=== PATIENT | male | born 1965 | race Two or more races ===

== ENCOUNTER 2018-10-02 21:25 | Inpatient (IN) | payer MEDICAID, OTHER ==
[~2018-10-02] VITALS: Ht 177.8 cm; Wt 88.1 kg
[2018-10-02 22:52] LABS: Albumin 3.3 g/dL (3.4-5.0); Basophils # (auto) 0 uL; Calcium 7.9 mg/dL (8.5-10.1); Eosinophils # (auto) 0.4 uL; Lymphocytes # (auto) 2.5 uL; Monocytes # (auto) 0.5 uL; Potassium 4.1 mmol/L (3.5-5.1)
[2018-10-02 22:53] LABS: Basophils % (auto) 0.5 % (0.0-2.0); Hematocrit 37.8 % (41.0-53.0); Lymphocytes % (auto) 35.5 % (10.0-50.0); Mean Corpuscular Hemoglobin 26.5 pg (28.0-32.0); Mean Corpuscular Hgb Conc. 31.7 g/dL (32.0-36.0); Mean Corpuscular Volume 83.8 fL (80.0-100.0); Monocytes % (auto) 7.7 % (0.0-12.0); Neutrophils # (auto) 3.5 uL; Neutrophils % (auto) 50.3 % (37.0-80.0); Platelet Count (auto) 232 10^3/uL (140-450); Red Blood Cells 4.51 10^6/uL (4.5-5.90); Red Cell Distribution Width 16.2 % (11.8-14.3)
[2018-10-02 22:59] LABS: BUN/Creatinine Ratio 15.9; Bilirubin, Total 0.3 mg/dL (0.2-1.0); Total Protein 6.7 g/dL (6.4-8.2)
[2018-10-03] MEDS ORDERED: VANCOMYCIN 1GM/250ML 250 ML IV ONE (03:45)
[2018-10-03] MEDS ORDERED: fentaNYL CITRATE 100 MCG/2 ML VL IV ONE (03:45)
[2018-10-03 04:30] LABS: Urine WBC None Seen /hpf (0 - 3)
[2018-10-03 05:12] LABS: Urine Bacteria NONE SEEN /hpf (None Seen); Urine Blood Negative /uL (Negative); Urine Specific Gravity 1.032 (1.001-1.035)
[2018-10-03] MEDS ORDERED: ACETAMINOPHEN 325 MG TAB PO PRN (05:45)
[2018-10-03] MEDS ORDERED: DEXTROSE (50%) 50ML SYRG IV PRN (05:45)
[2018-10-03] MEDS ORDERED: ONDANSETRON HCL 4 MG/2 ML VIAL IV PRN (05:45)
[2018-10-03] MEDS ORDERED: HYDROcodone-ACET 5/325MG TAB PO PRN (05:45)
[2018-10-03] MEDS ORDERED: TEMAZEPAM 15 MG CAP PO PRN (05:45)
[2018-10-03] MEDS: InsuLIN REG 1unit/0.01ml Soln (100units/ml) SC SCH ×2 (06:00→11:39)
[2018-10-03] MEDS: CLINDAMYCIN 600MG IV 50 ML IV SCH ×3 (06:10→22:16)
[2018-10-03] MEDS: ACCU-CHEK COMFORT CURVE STRIP VI SCH ×2 (06:18→11:39)
[2018-10-03 08:42] VITALS: BP 109/71
[2018-10-03] MEDS: FAMOTIDINE 20 MG TAB PO SCH ×2 (09:56→22:16)
[2018-10-03] MEDS: LISINOPRIL 10 MG TAB PO SCH (09:57)
[2018-10-03] MEDS: CARVEDILOL 3.125 MG TAB PO SCH (09:58)
[2018-10-03] MEDS: cefTRIAXone 1GM/50ML D5W 50 ML IV SCH (09:58)
[2018-10-03 10:37] VITALS: BP 109/71
[2018-10-03] MEDS ORDERED: ERTU5TAB PO (11:25)
[2018-10-03] MEDS ORDERED: FAMO-12 PO (11:25)
[2018-10-03] MEDS ORDERED: FURO40TA4 PO (11:25)
[2018-10-03] MEDS ORDERED: ASPI325T4 PO (11:25)
[2018-10-03] MEDS ORDERED: EXENINJ SC (11:25)
[2018-10-03] MEDS ORDERED: ATOR1TAB PO (11:25)
[2018-10-03] MEDS ORDERED: METF-370 PO (11:25)
[2018-10-03] MEDS ORDERED: CARV3.1240 PO (11:25)
[2018-10-03] MEDS ORDERED: EZET10TA6 PO (11:25)
[2018-10-03] MEDS ORDERED: LISI10TA6 PO (11:25)
[2018-10-03] MEDS ORDERED: INSLANTI SC (11:25)
[2018-10-03] MEDS ORDERED: ASPirin 81 mg TAB PO ONE (12:15)
[2018-10-03 12:24] VITALS: BP 106/61
[2018-10-03 17:00] VITALS: BP 117/66
[2018-10-03 22:00] VITALS: BP 100/61
[2018-10-03] MEDS ORDERED: ATORVASTATIN 20 MG TAB PO SCH (22:00)
[2018-10-04] MEDS: InsuLIN REG 1unit/0.01ml Soln (100units/ml) SC SCH ×4 (00:30→18:00)
[2018-10-04] MEDS: ACCU-CHEK COMFORT CURVE STRIP VI SCH ×4 (00:30→18:28)
[2018-10-04 05:00] VITALS: BP 108/71
[2018-10-04] MEDS: CLINDAMYCIN 600MG IV 50 ML IV SCH ×2 (05:41→15:19)
[2018-10-04 06:42] LABS: Basophils # (auto) 0 uL; Eosinophils # (auto) 0.4 uL; Lymphocytes # (auto) 2.1 uL; Monocytes # (auto) 0.5 uL; White Blood Cell 6.4 10^3/uL (4.4-10.8)
[2018-10-04 06:44] LABS: Basophils % (auto) 0.5 % (0.0-2.0); Eosinophils % (auto) 6.2 % (0.0-7.0); Hematocrit 38.1 % (41.0-53.0); Hemoglobin 12.3 g/dL (13.5-17.5); Lymphocytes % (auto) 33.2 % (10.0-50.0); Mean Corpuscular Hemoglobin 26.5 pg (28.0-32.0); Mean Corpuscular Hgb Conc. 32.2 g/dL (32.0-36.0); Mean Corpuscular Volume 82.5 fL (80.0-100.0); Monocytes % (auto) 7.7 % (0.0-12.0); Neutrophils # (auto) 3.3 uL; Neutrophils % (auto) 52.4 % (37.0-80.0); Nucleated Red Blood Cells % 0.1 %; Platelet Count (auto) 245 10^3/uL (140-450); Red Blood Cells 4.62 10^6/uL (4.5-5.90); Red Cell Distribution Width 16.5 % (11.8-14.3)
[2018-10-04 08:30] VITALS: BP 118/78
[2018-10-04] MEDS ORDERED: ASPirin 81 mg TAB PO SCH (10:00)
[2018-10-04] MEDS: cefTRIAXone 1GM/50ML D5W 50 ML IV SCH (10:17)
[2018-10-04] MEDS: CARVEDILOL 3.125 MG TAB PO SCH (10:17)
[2018-10-04] MEDS: LISINOPRIL 10 MG TAB PO SCH (10:18)
[2018-10-04] MEDS: FAMOTIDINE 20 MG TAB PO SCH (10:18)
[2018-10-04 12:00] VITALS: BP 119/62
[2018-10-04] MEDS ORDERED: CLIN1CAP4 PO (15:49)
[2018-10-04 17:00] VITALS: BP 106/65
[2018-10-04 17:46] VITALS: BP 106/65
== END 2018-10-04 19:00 | disposition home or self-care (01) | DRG 383 ==
LOC: ER 21:27 → OVERFLOW 10-03 05:39 → EAST 10-03 08:10
PROVIDERS: ADMIT Nurse Practitioner; ATTEND Nurse Practitioner
DX: L03.115 Cellulitis of right lower limb (principal); E44.1 Mild protein-calorie malnutrition; E11.9 Type 2 diabetes mellitus without complications; E78.5 Hyperlipidemia, unspecified; L02.619 Cutaneous abscess of unspecified foot; H54.61 Unqualified visual loss, right eye, normal vision left eye; I10 Essential (primary) hypertension; I25.10 Atherosclerotic heart disease of native coronary artery without angina pectoris; Z68.27 Body mass index [BMI] 27.0-27.9, adult
CPT/HCPCS: 36415; 80053; 81001; 82962; 83036; 83880; 84484; 85025; 87040; 93971; 96365; 96375; G0378; J0696; J1815; J3490

== ENCOUNTER → 2019-02-03 | Outpatient (CLI) | payer MEDICAID ==
[~2019-02-03] MED LIST: ALBUTEROL SULF 2.5 MG/0.5ML(0.5%) NEB SOLN ONE; ASPI325T4 PO; ATOR1TAB PO; CANA100T PO; CARV3.1240 PO; EZET10TA6 PO; FAMO-12 PO; INSLANTI SC; LISI10TA6 PO; METF-370 PO; SEMA2INJ SC
== END | disposition home or self-care (01) ==
LOC: RT 08:55
PROVIDERS: ATTEND Internal Medicine Pulmonary Disease
DX: R06.00 Dyspnea, unspecified (principal)
CPT/HCPCS: 94060; J7611

== ENCOUNTER 2020-09-13 16:01 | Emergency (ER) | payer OTHER, MEDICAID ==
[~2020-09-13] VITALS: Ht 177.8 cm; Wt 86.2 kg
[~2020-09-13 16:01] MED LIST changes: -ALBUTEROL SULF 2.5 MG/0.5ML(0.5%) NEB SOLN ONE; +EZET10TA22 PO; -EZET10TA6 PO; +LISI-648 PO; -LISI10TA6 PO
[2020-09-13 16:28] VITALS: BP 126/77
[2020-09-13 18:07] LABS: Basophils # (auto) 0 10 ^3/uL (0-0.2); Basophils % (auto) 0.6 % (0.0-2.0); Eosinophils # (auto) 0.3 10 ^3/uL (0-0.8); Eosinophils % (auto) 4.7 % (0.0-7.0); Hematocrit 44.9 % (41.0-53.0); Hemoglobin 14.6 g/dL (13.5-17.5); Lymphocytes # (auto) 2.8 10 ^3/uL (0.4-5.4); Lymphocytes % (auto) 40.3 % (10.0-50.0); Mean Corpuscular Hemoglobin 28.4 pg (28.0-32.0); Mean Corpuscular Hgb Conc. 32.5 g/dL (32.0-36.0); Mean Corpuscular Volume 87.5 fL (80.0-100.0); Monocytes # (auto) 0.6 10 ^3/uL (0-1.3); Monocytes % (auto) 8.9 % (0.0-12.0); Neutrophils # (auto) 3.2 10 ^3/uL (1.6-8.6); Neutrophils % (auto) 45.5 % (37.0-80.0); Nucleated Red Blood Cells % 0.2 %; Platelet Count (auto) 205 10^3/uL (140-450); Red Blood Cells 5.12 10^6/uL (4.5-5.90)
[2020-09-13 18:25] LABS: Albumin 3.9 g/dL (3.4-5.0); Calcium 9.2 mg/dL (8.5-10.1); Potassium 4.3 mmol/L (3.5-5.1)
[2020-09-13 18:28] LABS: BUN/Creatinine Ratio 15.6; Bilirubin, Total 0.6 mg/dL (0.2-1.0); Total Protein 7.4 g/dL (6.4-8.2)
== END 2020-09-13 21:05 | disposition left against medical advice (07) ==
LOC: ER 16:01
DX: R11.2 Nausea with vomiting, unspecified (principal); Z53.21 Procedure and treatment not carried out due to patient leaving prior to being seen by health care provider
CPT/HCPCS: 36415; 80053; 85025; 93005

== ENCOUNTER 2022-04-06 12:02 | Emergency (ER) | payer OTHER, MEDICAID ==
[~2022-04-06] VITALS: Ht 175.3 cm; Wt 87.5 kg
[~2022-04-06 12:02] MED LIST changes: +ATOR-47 PO; -ATOR1TAB PO; -LISI-648 PO; +LISI-716 PO
[2022-04-06 14:32] LABS: Basophils # (auto) 0.3 10 ^3/uL (0-0.2); Basophils % (auto) 1.8 % (0.0-2.0); Eosinophils # (auto) 0.2 10 ^3/uL (0-0.8); Eosinophils % (auto) 1.5 % (0.0-7.0); Hematocrit 46.5 % (41.0-53.0); Hemoglobin 15.6 g/dL (13.5-17.5); Lymphocytes # (auto) 1.8 10 ^3/uL (0.4-5.4); Lymphocytes % (auto) 12.4 % (10.0-50.0); Mean Corpuscular Hgb Conc. 33.6 g/dL (32.0-36.0); Mean Corpuscular Volume 89.4 fL (80.0-100.0); Monocytes # (auto) 0.5 10 ^3/uL (0-1.3); Monocytes % (auto) 3.6 % (0.0-12.0); Neutrophils # (auto) 11.9 10 ^3/uL (1.6-8.6); Neutrophils % (auto) 80.7 % (37.0-80.0); Red Blood Cells 5.21 10^6/uL (4.5-5.90); Red Cell Distribution Width 13.3 % (11.8-14.3); White Blood Cell 14.7 10^3/uL (4.4-10.8)
[2022-04-06] MEDS ORDERED: SODIUM CHLORIDE 0.9% 1,000 ML IV ONE (14:45)
[2022-04-06] MEDS ORDERED: ONDANSETRON HCL 4 MG/2 ML VIAL IV ONE (14:45)
[2022-04-06 14:51] LABS: BUN/Creatinine Ratio 9.3; Calcium 8.9 mg/dL (8.5-10.1); Magnesium 2.2 mg/dL (1.6-2.6); Potassium 4.2 mmol/L (3.5-5.1)
[2022-04-06 14:53] LABS: Bilirubin, Total 0.3 mg/dL (0.2-1.0); Total Protein 7.7 g/dL (6.4-8.2)
[2022-04-06] MEDS ORDERED: METO-281 PO (17:14)
[2022-04-06 18:06] VITALS: BP 130/87
== END 2022-04-06 18:10 | disposition home or self-care (01) ==
LOC: ER 12:02
DX: E11.649 Type 2 diabetes mellitus with hypoglycemia without coma (principal); R11.2 Nausea with vomiting, unspecified; R53.1 Weakness; H54.40 Blindness, one eye, unspecified eye; I11.0 Hypertensive heart disease with heart failure; I50.9 Heart failure, unspecified; I48.91 Unspecified atrial fibrillation; I25.2 Old myocardial infarction; E11.9 Type 2 diabetes mellitus without complications; E78.5 Hyperlipidemia, unspecified; Z95.1 Presence of aortocoronary bypass graft; Z79.82 Long term (current) use of aspirin; Z79.4 Long term (current) use of insulin; Z79.899 Other long term (current) drug therapy
CPT/HCPCS: 36415; 71046; 80053; 83735; 83880; 84443; 84484; 85025; 93005; 96361; 96374; 99285; J2405; J7030

== ENCOUNTER 2022-07-23 19:29 | Inpatient (IN) | payer OTHER, MEDICAID ==
[~2022-07-23] VITALS: Ht 172.7 cm; Wt 88.0 kg
[~2022-07-23 19:29] MED LIST changes: +METO-281 PO
[2022-07-23 20:27] LABS: Basophils # (auto) 0 10 ^3/uL (0-0.2); Basophils % (auto) 0.5 % (0.0-2.0); Eosinophils # (auto) 0.2 10 ^3/uL (0-0.8); Eosinophils % (auto) 2.7 % (0.0-7.0); Hematocrit 40.5 % (41.0-53.0); Lymphocytes # (auto) 2.4 10 ^3/uL (0.4-5.4); Lymphocytes % (auto) 32.1 % (10.0-50.0); Mean Corpuscular Hemoglobin 28.8 pg (28.0-32.0); Mean Corpuscular Hgb Conc. 32.1 g/dL (32.0-36.0); Mean Corpuscular Volume 89.6 fL (80.0-100.0); Monocytes # (auto) 0.5 10 ^3/uL (0-1.3); Monocytes % (auto) 6.5 % (0.0-12.0); Neutrophils # (auto) 4.4 10 ^3/uL (1.6-8.6); Neutrophils % (auto) 58.2 % (37.0-80.0); Nucleated Red Blood Cells % 0.1 %; Red Blood Cells 4.52 10^6/uL (4.5-5.90); Red Cell Distribution Width 13.2 % (11.8-14.3); White Blood Cell 7.5 10^3/uL (4.4-10.8)
[2022-07-23 20:47] LABS: Albumin 3.2 g/dL (3.4-5.0); Anion Gap 8 (5-15); Blood Urea Nitrogen 12 mg/dL (7-18); Calcium 8.3 mg/dL (8.5-10.1); Carbon Dioxide 24 mmol/L (21-32); Chloride 106 mmol/L (98-107); Glucose 167 mg/dL (74-106); Potassium 4.2 mmol/L (3.5-5.1); Sodium 138 mmol/L (136-145)
[2022-07-23 20:49] LABS: Alanine Aminotransferase 45 U/L (16-61); Aspartate Aminotransferase 28 U/L (15-37); BUN/Creatinine Ratio 14.1; GFR African American 119 mL/min; GFR Non-African American 98 mL/min
[2022-07-23 20:51] LABS: Alkaline Phosphatase 65 U/L (45-117); Bilirubin, Total 0.4 mg/dL (0.2-1.0); Total Protein 6.2 g/dL (6.4-8.2)
[2022-07-23] MEDS ORDERED: ASPirin 325 MG TAB PO ONE (21:00)
[2022-07-23] MEDS ORDERED: SODIUM CHLORIDE 0.9% 1,000 ML IV ONE (21:00)
[2022-07-23] MEDS ORDERED: NITROGLYCERIN 0.4 MG SL TAB SL ONE (21:00)
[2022-07-23] MEDS ORDERED: ONDANSETRON HCL 4 MG/2 ML VIAL IV PRN (21:15)
[2022-07-23] MEDS ORDERED: NITROGLYCERIN 0.4 MG SL TAB SL PRN (21:15)
[2022-07-23] MEDS ORDERED: ENOXAPARIN SOD 100 MG/1 ML SYRINGE SC ONE (21:15)
[2022-07-23] MEDS ORDERED: TEMAZEPAM 15 MG CAP PO PRN (21:15)
[2022-07-23] MEDS ORDERED: DEXTROSE (50%) 50ML SYRG IV PRN (21:15)
[2022-07-23] MEDS ORDERED: MORPHINE SULFATE INJ 2 MG/ml SYRG IV PRN (21:15)
[2022-07-23] MEDS: CARVEDILOL 3.125 MG TAB PO SCH (22:00)
[2022-07-23] MEDS: InsuLIN REG 1unit/0.01ml Soln (100units/ml) SC SCH (23:37)
[2022-07-23] MEDS: ACCU-CHEK COMFORT CURVE STRIP VI SCH (23:37)
[2022-07-23] MEDS: ATORVASTATIN 20 MG TAB PO SCH (23:44)
[2022-07-23] MEDS: DONEPEZIL HYDROCHLORIDE 5 MG TAB PO SCH (23:45)
[2022-07-24 04:58] LABS: Basophils # (auto) 0 10 ^3/uL (0-0.2); Basophils % (auto) 0.4 % (0.0-2.0); Eosinophils # (auto) 0.2 10 ^3/uL (0-0.8); Eosinophils % (auto) 3.2 % (0.0-7.0); Hematocrit 38.1 % (41.0-53.0); Hemoglobin 12.4 g/dL (13.5-17.5); Lymphocytes # (auto) 3.1 10 ^3/uL (0.4-5.4); Lymphocytes % (auto) 45.4 % (10.0-50.0); Mean Corpuscular Hemoglobin 28.9 pg (28.0-32.0); Mean Corpuscular Hgb Conc. 32.7 g/dL (32.0-36.0); Mean Corpuscular Volume 88.4 fL (80.0-100.0); Monocytes # (auto) 0.4 10 ^3/uL (0-1.3); Monocytes % (auto) 5.5 % (0.0-12.0); Neutrophils # (auto) 3.2 10 ^3/uL (1.6-8.6); Neutrophils % (auto) 45.5 % (37.0-80.0); Nucleated Red Blood Cells % 0.1 %; Red Cell Distribution Width 13.3 % (11.8-14.3); White Blood Cell 6.9 10^3/uL (4.4-10.8)
[2022-07-24 05:02] LABS: Albumin 2.9 g/dL (3.4-5.0); Calcium 7.7 mg/dL (8.5-10.1); Potassium 3.9 mmol/L (3.5-5.1)
[2022-07-24 05:05] LABS: BUN/Creatinine Ratio 13.6; Bilirubin, Total 0.4 mg/dL (0.2-1.0); Total Protein 5.3 g/dL (6.4-8.2)
[2022-07-24] MEDS: ACCU-CHEK COMFORT CURVE STRIP VI SCH ×4 (05:38→23:27)
[2022-07-24] MEDS: InsuLIN REG 1unit/0.01ml Soln (100units/ml) SC SCH ×4 (05:49→23:28)
[2022-07-24] MEDS: CARVEDILOL 3.125 MG TAB PO SCH ×2 (10:00→22:00)
[2022-07-24] MEDS ORDERED: PANTOPRAZOLE 40 MG TAB PO SCH (10:00)
[2022-07-24] MEDS ORDERED: ASPirin 81 mg TAB PO SCH (10:00)
[2022-07-24] MEDS: LISINOPRIL 10 MG TAB PO SCH (10:25)
[2022-07-24] MEDS ORDERED: ENOXAPARIN SOD 80 MG/0.8ML SYRINGE SC ONE (10:45)
[2022-07-24 15:21] LABS: Alcohol, Urine < 3.0 mg/dL (0-10); Amphetamine Screen, Urine NEGATIVE (NEGATIVE); Barbiturate Scree,Urine NEGATIVE (NEGATIVE); Benzodiazephine Screen, Urine NEGATIVE (NEGATIVE); Cannabinoid Screen, Urine NEGATIVE (NEGATIVE); Cocaine Screen, Urine NEGATIVE (NEGATIVE); Opiate Scree,Urine NEGATIVE (NEGATIVE); Phencyclidine Screen, Urine NEGATIVE (NEGATIVE)
[2022-07-24 15:22] LABS: Urine Bacteria NONE SEEN /hpf (None Seen); Urine Blood Negative /uL (Negative); Urine Mucus FEW (None Seen); Urine Specific Gravity 1.012 (1.001-1.035); Urine WBC <1 /hpf (0 - 3)
[2022-07-24 17:08] VITALS: BP 124/61
[2022-07-24 17:10] VITALS: BP 124/61
[2022-07-24] MEDS ORDERED: SUCRALFATE 1 GM/10 ML ORAL SUSP PO SCH (18:00)
[2022-07-24] MEDS: SUCRALFATE 1 GM/10 ML ORAL SUSP PO SCH ×2 (18:02→22:10)
[2022-07-24] MEDS ORDERED: FAMO20TA10 PO (19:43)
[2022-07-24] MEDS ORDERED: PROMETHAZINE-DM 5 ML ORAL SYRUP PO PRN (19:45)
[2022-07-24] MEDS ORDERED: ACETAMINOPHEN 325 MG TAB PO PRN (19:45)
[2022-07-24] MEDS ORDERED: CYAN1TAB14 PO (19:56)
[2022-07-24] MEDS ORDERED: DONE1TAB88 PO (20:00)
[2022-07-24] MEDS ORDERED: LISI-275 PO (20:00)
[2022-07-24] MEDS ORDERED: METF-372 PO (20:00)
[2022-07-24] MEDS ORDERED: EVOL140I2 SC (20:00)
[2022-07-24] MEDS ORDERED: DULA0.5I SC (20:00)
[2022-07-24] MEDS ORDERED: LATA0.0020 EACHEYE (20:00)
[2022-07-24 22:00] VITALS: BP 98/55
[2022-07-24] MEDS ORDERED: PANTOPRAZOLE 40 MG/10 ML VIAL INJ IV SCH (22:00)
[2022-07-24] MEDS: PANTOPRAZOLE 40 MG/10 ML VIAL INJ IV SCH (22:00)
[2022-07-24] MEDS: DONEPEZIL HYDROCHLORIDE 5 MG TAB PO SCH (22:09)
[2022-07-24] MEDS: ATORVASTATIN 20 MG TAB PO SCH (22:11)
[2022-07-24] MEDS: ENOXAPARIN SOD 80 MG/0.8ML SYRINGE SC SCH (22:12)
[2022-07-25 05:00] VITALS: BP 112/60
[2022-07-25] MEDS: ACCU-CHEK COMFORT CURVE STRIP VI SCH ×3 (06:12→18:00)
[2022-07-25] MEDS: InsuLIN REG 1unit/0.01ml Soln (100units/ml) SC SCH ×3 (06:19→18:46)
[2022-07-25] MEDS: SUCRALFATE 1 GM/10 ML ORAL SUSP PO SCH ×4 (06:22→21:38)
[2022-07-25] MEDS ORDERED: ADENOSINE 74 MG in GIVE UN-DILUTED 0 ML IV ONE (08:00)
[2022-07-25 08:58] VITALS: BP 111/63
[2022-07-25] MEDS: ENOXAPARIN SOD 80 MG/0.8ML SYRINGE SC SCH ×2 (10:00→21:43)
[2022-07-25] MEDS: PANTOPRAZOLE 40 MG/10 ML VIAL INJ IV SCH ×2 (10:10→21:41)
[2022-07-25] MEDS: LISINOPRIL 10 MG TAB PO SCH (10:11)
[2022-07-25] MEDS: CARVEDILOL 3.125 MG TAB PO SCH ×2 (10:11→21:40)
[2022-07-25] MEDS: ASPirin 81 mg TAB PO SCH (10:12)
[2022-07-25 12:14] VITALS: BP 115/61
[2022-07-25 16:52] VITALS: BP 109/67
[2022-07-25 21:33] VITALS: BP_SYST 110; BP_SYST 86; BP_DIAS 57; BP_DIAS 74
[2022-07-25] MEDS: DONEPEZIL HYDROCHLORIDE 5 MG TAB PO SCH (21:38)
[2022-07-25] MEDS: ATORVASTATIN 20 MG TAB PO SCH (21:38)
[2022-07-25 22:43] VITALS: BP 110/57
[2022-07-26] MEDS: ACCU-CHEK COMFORT CURVE STRIP VI SCH ×5 (01:02→23:23)
[2022-07-26 04:50] VITALS: BP 108/66
[2022-07-26] MEDS: InsuLIN REG 1unit/0.01ml Soln (100units/ml) SC SCH ×5 (05:19→23:25)
[2022-07-26 06:16] LABS: Partial Thromboplastin Time 27.6 sec (24.6-33.4)
[2022-07-26] MEDS: SUCRALFATE 1 GM/10 ML ORAL SUSP PO SCH ×4 (06:36→22:42)
[2022-07-26 08:39] VITALS: BP 109/70
[2022-07-26] MEDS: PANTOPRAZOLE 40 MG/10 ML VIAL INJ IV SCH ×2 (09:43→22:42)
[2022-07-26] MEDS: ASPirin 81 mg TAB PO SCH (09:43)
[2022-07-26] MEDS: ISOSORBIDE MONONITRATE ER 60 MG TAB PO SCH (09:44)
[2022-07-26] MEDS: LISINOPRIL 10 MG TAB PO SCH (09:44)
[2022-07-26] MEDS: CARVEDILOL 3.125 MG TAB PO SCH ×2 (09:45→22:00)
[2022-07-26] MEDS ORDERED: MIDAZOLAM HCL 5 MG/ML-1ML VIAL ONE (11:38)
[2022-07-26] MEDS ORDERED: LIDOCAINE VISCOUS 2% 15ML UD ONE (11:38)
[2022-07-26] MEDS ORDERED: diphenhdrAMINE HCL 50 MG/1 ML VL ONE (11:38)
[2022-07-26] MEDS ORDERED: fentaNYL CITRATE 100 MCG/2 ML VL ONE (11:39)
[2022-07-26 12:39] VITALS: BP 103/48
[2022-07-26] MEDS ORDERED: SODIUM CHLORIDE 0.9% 1,000 ML IV ONE (15:00)
[2022-07-26] MEDS ORDERED: PANT40TA2 PO (15:08)
[2022-07-26] MEDS ORDERED: SUCR1TAB22 PO (15:08)
[2022-07-26 16:42] VITALS: BP 95/61
[2022-07-26] MEDS ORDERED: SODIUM CHLORIDE 0.9% 500 ML IV ONE (18:15)
[2022-07-26] MEDS ORDERED: MIDODRINE HCL 10 MG TAB PO ONE (19:00)
[2022-07-26] MEDS: DONEPEZIL HYDROCHLORIDE 5 MG TAB PO SCH (22:42)
[2022-07-26] MEDS: ATORVASTATIN 20 MG TAB PO SCH (22:42)
[2022-07-26 22:51] VITALS: BP 102/62
[2022-07-27] VITALS (8 sets, daily range): BP systolic 91–123; BP diastolic 51–69
[2022-07-27] MEDS: ACCU-CHEK COMFORT CURVE STRIP VI SCH (05:30)
[2022-07-27] MEDS: SUCRALFATE 1 GM/10 ML ORAL SUSP PO SCH ×2 (05:30→11:30)
[2022-07-27] MEDS: InsuLIN REG 1unit/0.01ml Soln (100units/ml) SC SCH (05:40)
[2022-07-27] MEDS: ASPirin 81 mg TAB PO SCH (07:32)
[2022-07-27] MEDS: PANTOPRAZOLE 40 MG/10 ML VIAL INJ IV SCH (09:49)
[2022-07-27] MEDS: LISINOPRIL 10 MG TAB PO SCH (09:50)
[2022-07-27] MEDS: CARVEDILOL 3.125 MG TAB PO SCH (09:50)
[2022-07-27] MEDS: ISOSORBIDE MONONITRATE ER 60 MG TAB PO SCH (10:00)
[2022-07-27 10:25] LABS: Basophils # (auto) 0.1 10 ^3/uL (0-0.2); Eosinophils # (auto) 0.2 10 ^3/uL (0-0.8); Eosinophils % (auto) 2.7 % (0.0-7.0); Hematocrit 41.7 % (41.0-53.0); Hemoglobin 14.1 g/dL (13.5-17.5); Lymphocytes # (auto) 2.1 10 ^3/uL (0.4-5.4); Lymphocytes % (auto) 33.7 % (10.0-50.0); Mean Corpuscular Hgb Conc. 33.7 g/dL (32.0-36.0); Mean Corpuscular Volume 88.9 fL (80.0-100.0); Monocytes # (auto) 0.4 10 ^3/uL (0-1.3); Monocytes % (auto) 6.3 % (0.0-12.0); Neutrophils # (auto) 3.5 10 ^3/uL (1.6-8.6); Neutrophils % (auto) 56.3 % (37.0-80.0); Nucleated Red Blood Cells % 0.1 %; Red Blood Cells 4.69 10^6/uL (4.5-5.90); White Blood Cell 6.1 10^3/uL (4.4-10.8)
[2022-07-27 10:42] LABS: Albumin 3.3 g/dL (3.4-5.0); Calcium 8.6 mg/dL (8.5-10.1); Potassium 4.2 mmol/L (3.5-5.1)
[2022-07-27 10:47] LABS: BUN/Creatinine Ratio 11.3; Bilirubin, Total 0.4 mg/dL (0.2-1.0); Total Protein 6.1 g/dL (6.4-8.2)
== END 2022-07-27 11:30 | disposition home or self-care (01) | DRG 384 ==
LOC: ER 19:29 → TELE 21:18 → TELE-EAST 07-24 17:05
PROVIDERS: ADMIT Nurse Practitioner; ATTEND Internal Medicine
PROC: 0DB68ZX Excision of Stomach, Via Natural or Artificial Opening Endoscopic, Diagnostic (ICD-10-PCS; 2022-07-26)
PROC: 0DB38ZX Excision of Lower Esophagus, Via Natural or Artificial Opening Endoscopic, Diagnostic (ICD-10-PCS; 2022-07-26)
PROC: 0DB98ZX Excision of Duodenum, Via Natural or Artificial Opening Endoscopic, Diagnostic (ICD-10-PCS; principal; 2022-07-26 13:42)
DX: K25.9 Gastric ulcer, unspecified as acute or chronic, without hemorrhage or perforation (principal); K29.80 Duodenitis without bleeding; K29.70 Gastritis, unspecified, without bleeding; Z97.0 Presence of artificial eye; E11.9 Type 2 diabetes mellitus without complications; E78.5 Hyperlipidemia, unspecified; I11.0 Hypertensive heart disease with heart failure; I48.91 Unspecified atrial fibrillation; I50.9 Heart failure, unspecified; Z20.822 Contact with and (suspected) exposure to COVID-19; I95.9 Hypotension, unspecified; I25.10 Atherosclerotic heart disease of native coronary artery without angina pectoris; H54.62 Unqualified visual loss, left eye, normal vision right eye; K44.9 Diaphragmatic hernia without obstruction or gangrene; Z88.8 Allergy status to other drugs, medicaments and biological substances; Z79.4 Long term (current) use of insulin; I25.2 Old myocardial infarction; Z79.82 Long term (current) use of aspirin; Z79.899 Other long term (current) drug therapy; Z95.1 Presence of aortocoronary bypass graft; Z80.0 Family history of malignant neoplasm of digestive organs; Z82.49 Family history of ischemic heart disease and other diseases of the circulatory system; Z83.3 Family history of diabetes mellitus; Z87.11 Personal history of peptic ulcer disease; K21.00 Gastro-esophageal reflux disease with esophagitis, without bleeding
CPT/HCPCS: 36415; 43239; 71045; 78452; 80053; 80307; 81001; 82553; 82962; 83690; 83880; 84484; 85025; 85610; 85730; 86850; 86900; 86901; 93005; 93017; 93306; 96360; 96372; C9113; G0378; J0153; J1815; J2250

== ENCOUNTER 2023-01-29 09:08 | Emergency (ER) | payer OTHER, MEDICAID ==
[~2023-01-29] VITALS: Ht 172.7 cm; Wt 87.0 kg
[~2023-01-29 09:08] MED LIST changes: +CYAN1TAB14 PO; +DONE1TAB88 PO; +DULA0.5I SC; +EVOL140I2 SC; -FAMO-12 PO; +LATA0.0020 EACHEYE; +LISI-275 PO; -LISI-716 PO; +METF-372 PO; +PANT40TA2 PO; +SUCR1TAB22 PO
[2023-01-29 09:45] VITALS: BP 137/77
== END 2023-01-29 10:29 | disposition home or self-care (01) ==
LOC: ER 09:08
DX: M19.012 Primary osteoarthritis, left shoulder (principal); M77.8 Other enthesopathies, not elsewhere classified; I48.91 Unspecified atrial fibrillation; I11.0 Hypertensive heart disease with heart failure; E11.9 Type 2 diabetes mellitus without complications; I50.9 Heart failure, unspecified; Z88.8 Allergy status to other drugs, medicaments and biological substances; Z79.899 Other long term (current) drug therapy; Z79.84 Long term (current) use of oral hypoglycemic drugs; Z88.6 Allergy status to analgesic agent; Z98.890 Other specified postprocedural states; Z79.82 Long term (current) use of aspirin
CPT/HCPCS: 73030; 93005

== ENCOUNTER 2023-03-07 07:10 | Day surgery (SDC) | payer OTHER, MEDICAID ==
[~2023-03-07] VITALS: Ht 175.3 cm; Wt 88.0 kg
[~2023-03-07 07:10] MED LIST changes: +CLOP75TA70 PO; +EVOL140I SC; -EVOL140I2 SC; -EZET10TA22 PO; +FAMO-12 PO; -INSLANTI SC; +INSU1INJ19 SC; -METF-370 PO; -METO-281 PO; -PANT40TA2 PO; -SEMA2INJ SC
[2023-03-07] MEDS ORDERED: fentaNYL CITRATE 100 MCG/2 ML VL ONE (09:20)
[2023-03-07] MEDS ORDERED: LIDOCAINE 2%HCL (LOCAL ANESTH.) INJ 20ML MDV ONE (09:20)
[2023-03-07] MEDS ORDERED: IODIXANOL 320MG/ML 100ML BTL IV ONE ×2 (09:20→10:05)
[2023-03-07] MEDS ORDERED: MIDAZOLAM HCL 2MG/2ML 2ml VIAL (1mg/ml) ONE (09:20)
[2023-03-07] MEDS ORDERED: ANGIOMAX 250 MG VIAL IV ONE (09:22)
[2023-03-07] MEDS ORDERED: SODIUM CHL 0.9% 0 ML ONE (09:23)
[2023-03-07] MEDS ORDERED: VERAPAMIL 2.5MG/ML INJ 2ML VIAL IV ONE (09:24)
[2023-03-07] MEDS ORDERED: HEPARIN SODIUM (PORCINE) 5000 UNITS/ML 1ML VIAL ONE (09:24)
[2023-03-07] MEDS ORDERED: SUCR1TAB PO (11:10)
[2023-03-07] MEDS ORDERED: CYAN500T26 PO (11:10)
== END 2023-03-07 12:15 | disposition home or self-care (01) ==
LOC: CATH 07:10
PROVIDERS: ATTEND Internal Medicine Cardiovascular Disease
DX: I25.5 Ischemic cardiomyopathy (principal); I10 Essential (primary) hypertension; I25.2 Old myocardial infarction; E11.9 Type 2 diabetes mellitus without complications; Z80.0 Family history of malignant neoplasm of digestive organs; Z83.3 Family history of diabetes mellitus; Z98.61 Coronary angioplasty status; Z79.82 Long term (current) use of aspirin; Z79.4 Long term (current) use of insulin; Z88.8 Allergy status to other drugs, medicaments and biological substances; Z82.49 Family history of ischemic heart disease and other diseases of the circulatory system; Z79.899 Other long term (current) drug therapy
CPT/HCPCS: 76937; 93458; C1769; C1894; J1644; J2250; J3010; Q9967; 99152; 99153

== ENCOUNTER 2023-11-11 19:41 | Emergency (ER) | payer OTHER, MEDICAID ==
[~2023-11-11] VITALS: Ht 175.3 cm; Wt 77.2 kg
[2023-11-11 19:41] VITALS: BP 117/55; PULSE 74; RESP 20; O2SAT 97
[~2023-11-11 19:41] MED LIST changes: -CYAN1TAB14 PO; +CYAN500T26 PO; +SUCR1TAB PO; -SUCR1TAB22 PO
== END 2023-11-11 21:55 | disposition left against medical advice (07) ==
LOC: ER 19:41
DX: H57.89 Other specified disorders of eye and adnexa (principal); Z53.21 Procedure and treatment not carried out due to patient leaving prior to being seen by health care provider

== ENCOUNTER 2025-03-21 18:20 | Emergency (ER) | payer OTHER, MEDICAID ==
[~2025-03-21] VITALS: Ht 175.3 cm; Wt 83.7 kg
[~2025-03-21 18:20] MED LIST changes: -ASPI325T4 PO; +ASPI325T6 PO; -CYAN500T26 PO; +[UNRECOGNIZED DRUG - CODE] PO
--- NOTE | 2025-03-21 19:32 | DVH ---
CHEST RADIOGRAPH Indication: CP Technique: Single frontal view of the chest was obtained Comparison: CHEST PORTABLE on DOS: 07/23/22, CXRP on DOS: 07/23/22 FINDINGS: Lines and Tubes: None Lungs: No focal consolidation. Pleura: No effusion. No pneumothorax. Cardiomediastinal contours: Unremarkable. Midline sternotomy wires surgical clips are noted consiste nt with prior history of CABG. Bones: No acute osseous abnormality. IMPRESSION: No acute cardiopulmonary disease.
[2025-03-21 19:36] LABS: Basophils # (auto) 0 10 ^3/uL (0-0.2); Basophils % (auto) 0.3 % (0.0-2.0); Eosinophils # (auto) 0.2 10 ^3/uL (0-0.8); Eosinophils % (auto) 2.1 % (0.0-7.0); Hematocrit 46.1 % (41.0-53.0); Hemoglobin 15.4 g/dL (13.5-17.5); Lymphocytes # (auto) 2.4 10 ^3/uL (0.4-5.4); Lymphocytes % (auto) 32.6 % (10.0-50.0); Mean Corpuscular Hemoglobin 30.2 pg (28.0-32.0); Mean Corpuscular Hgb Conc. 33.5 g/dL (32.0-36.0); Mean Corpuscular Volume 90.4 fL (80.0-100.0); Monocytes # (auto) 0.5 10 ^3/uL (0-1.3); Neutrophils # (auto) 4.4 10 ^3/uL (1.6-8.6); Nucleated Red Blood Cells % 0.1 %; Platelet Count (auto) 192 10^3/uL (140-450); Red Cell Distribution Width 12.9 % (11.8-14.3); White Blood Cell 7.5 10^3/uL (4.4-10.8)
[2025-03-21 19:36] LABS: Urine Bacteria None Seen /hpf (None Seen)
[2025-03-21 19:55] LABS: Albumin 4.7 g/dL (3.2-4.8); Alkaline Phosphatase 74 U/L (46-116); Anion Gap 8 (5-15); Aspartate Aminotransferase 25 U/L (13-40); BUN/Creatinine Ratio 8.9 (10.0-20.0); Blood Urea Nitrogen 12 mg/dL (9-23); Calcium 10.3 mg/dL (8.7-10.4); Carbon Dioxide 28 mmol/L (20-31); Chloride 105 mmol/L (98-107); Potassium 4.1 mmol/L (3.5-5.1); Sodium 141 mmol/L (136-145); Total Protein 7.1 g/dL (5.7-8.2)
[2025-03-21 19:56] LABS: Bilirubin, Total 0.5 mg/dL (0.2-1.0)
[2025-03-21 19:57] LABS: Urine Blood Negative /uL (Negative); Urine Clarity Clear (Clear); Urine Color Light-Yellow (Yellow); Urine Protein, UAD Negative (Negative); Urine Specific Gravity 1.037 (1.001-1.035); Urine Squamous Epithelial Cell None Seen /hpf (<5); Urine Urobilinogen Normal (Negative); Urine WBC < 1 /HPF (0-3); Urine pH 5.5 (5.0-9.0)
[2025-03-21 19:58] LABS: Alanine Aminotransferase 49 U/L (7-40); Glucose 143 mg/dL (74-106)
--- NOTE | 2025-03-21 20:07 | ED.PDOC ---
HPI Comments 59 y/o M, with PMHx of A-Fib, CHF, DM, HLD, HTN, and [place] presents to the ED for CC of chest pain. Patient states, that he has been experiencing substernal chest pain that radiates from his midback onset, 1400 today (03/21/25). Patient reports, symptoms to have come on following working on furniture outside. Patient comments, on increased stressed d/t dog being bite by snake which could be a factor of symptoms. Patient expresses increased concern due to having SHx:CABG; complains of current 2/10 pain. Patient denies headache, shortness of breath, dizziness, or weakness. No other symptoms or modifying factors present at this time. Chief Complaint: Chest Pain Time Seen by MD: 19:30 Primary Care Provider: JESSICA BRAVO Reviewed Notes: Nurses Notes, Medications, Allergies Allergies: Coded Allergies: Ertugliflozin (Verified Allergy, Unknown, RASH, 03/05/23) Esomeprazole (Verified Allergy, Unknown, RASH, 03/05/23) Omeprazole (Verified Allergy, Unknown, RASH, 03/05/23) Pantoprazole (Verified Allergy, Unknown, RASH, 03/05/23) Home Meds Reported Medications Sucralfate (Sucralfate) 1 Gm Tab, 1 TAB PO QID for GASTRIC ULCER PREVENTION 03/07/23 Cyanocobalamin (B-12) 500 Mcg Tab, 1 TAB PO DAILY for SUPPLEMENT 03/07/23 Evolocumab (Repatha) 140 Mg/Ml Inj, 1 ML SC EVERY OTHER FRIDAY for HIGH CHOLESTEROL 03/05/23 Insulin Glargine (Basaglar Kwikpen) 100 Unit/Ml Inj, 15 UNIT SC BID PRN for Blood Sugar over 125 03/05/23 Clopidogrel Bisulfate (CLOPIDOGREL) 75 Mg Tab, 1 TAB PO DAILY for POST-CABG 03/05/23 Famotidine (Famotidine) 20 Mg Tab, 1 TAB PO BID for GERD 03/05/23 Dulaglutide (Trulicity) 1.5 Mg/0.5 Ml Inj, 1.5 ML SC QWEEKLY for DIABETES 07/24/22 Metformin Hydrochloride (Metformin Hcl) 1,000 Mg Tab, 1 TAB PO BID for DIABETES 07/24/22 Latanoprost (Xalatan) 0.005 % Gabriela, 1 DROP EACHEYE QPM for GLAUCOMA 07/24/22 Donepezil Hydrochloride (DONEPEZIL HCL) 10 Mg Tab, 1 TAB PO DAILY for HYPERTENSION 07/24/22 Lisinopril (Lisinopril) 5 Mg Tab, 2 TAB PO DAILY for HYPERTENSION 07/24/22 Canagliflozin (INVOKANA) 100 Mg Tab, 1 TAB PO DAILY for DIABETES 12/05/18 Carvedilol (Carvedilol) 3.125 Mg Tab, 1 TAB PO BID for HYPERTENSION 10/03/18 Aspirin (Aspirin) 325 Mg Tab, 1 TAB PO DAILY for CAD 10/03/18 Atorvastatin Calcium (ATORVASTATIN CALCIUM) 80 Mg Tab, 1 TAB PO QPM for HIGH CHOLESTEROL 10/03/18 Information Source: Patient Mode of Arrival: Ambulatory Severity: Moderate Timing: Hours Duration: Since onset Prehospital treatment: None Location: Substernal Radiation: Back Onset: With Light Exertion Cardiac Risk Factors: Hyperlipidemia, HTN, Diabetes PE Risk Factors: None History of: [place] Modifying Factors: Nothing Associated Signs and Symptoms: None Past Medical History PAST MEDICAL HISTORY: AFIB, CHF, DM, High Lipids, HTN, [place], PUD Surgical History: CABG, Hernia Repair Family History Family History: Reviewed,noncontributory to illness Social History Smoker: Non-Smoker Alcohol: Occasionally Drugs: Denies Drug Use Lives In: Home Constitutional: denies: chills, diaphoresis, fatigue, fever, malaise, sweats, weakness, others EENTM: denies: blurred vision, double vision, ear bleeding, ear discharge, ear drainage, ear pain, ear ringing, eye pain, eye redness, hearing loss, mouth pain, mouth swelling, nasal discharge, nose bleeding, nose congestion, nose pain, photophobia, tearing, throat pain, throat swelling, voice changes, others Respiratory: denies: cough, hemoptysis, orthopnea, SOB at rest, shortness of breath, SOB with excertion, stridor, wheezing, others Cardiovascular: reports: chest pain; denies: dizzy spells, diaphoresis, Dyspnea on exertion, edema, irregular heart beat, left arm pain, lightheadedness, palpitations, PND, syncope, others Gastrointestinal: denies: abdomen distended, abdominal pain, blood streaked bowels, constipated, diarrhea, dysphagia, difficulty swallowing, hematemesis, melena, nausea, poor appetite, poor fluid intake, rectal bleeding, rectal pain, vomiting, others Genitourinary: denies: burning, dysuria, flank pain, frequency, hematuria, incontinence, penile discharge, penile sore, pain, testicle pain, testicle swelling, urgency, others Neurological: denies: dizziness, fainting, headache, left sided numbness, left sided weakness, numbness, paresthesia, pre-existing deficit, right sided numbness, right sided weakness, seizure, speech problems, tingling, tremors, weakness, others Musculoskeletal: denies: back pain, gout, joint pain, joint swelling, muscle pain, muscle stiffness, neck pain, others Integumetry: denies: bruises, change in color, change in hair/nails, dryness, laceration, lesions, lumps, rash, wounds, others Allergic/Immunocompromised: denies: Difficulty Healing, Frequent Infections, Hives, Itching, others Hematologic/Lymphatic: denies: anemia, blood clots, easy bleeding, easy bruising, swollen glands, others Endocrine: denies: excessive hunger, excessive sweating, excessive thirst, excessive urination, flushing, intolerance to cold, intolerance to heat, unexplained weight gain, unexplained weight loss, others Psychiatric: denies: anxiety, bipolar disorder, depression, hopeless, panic disorder, schizophrenia, sleepless, suicidal, others All Other Systems: Reviewed and Negative Physical Exam General Appearance: No Apparent Distress, Normal HEENT: Normal ENT Inspection, Pharynx Normal, TMs Normal Neck: Full Range of Motion, Non-Tender, Normal, Normal Inspection Respiratory: Chest Non-Tender, Lungs Clear, No Accessory Muscle Use, No Respiratory Distress, Normal Breath Sounds Cardiovascular: No Edema, No Murmur, No Gallop, Normal Peripheral Pulses, Regular Rate/Rhythm, Other (Reproducible chest pain) Breast Exam: Deferred Gastrointestinal: No Organomegaly, Non Tender, No Pulsatile Mass, Normal Bowel Sounds, Soft Genitalia: Deferred Pelvic: Deferred Rectal: Deferred Extremities: No calf tenderness, Normal capillary refill, Normal inspection, Normal range of motion, Non-tender, No pedal edema Musculoskeletal : Apperance: Normal Neurologic: Alert, receiving team member II-XII nml as Tested, No Motor Deficits, Normal Affect, Normal Mood, No Sensory Deficits Cerebellar Function: Normal Reflexes: Normal Skin: Dry, Normal Color, Warm Lymphatic: No Adenopathy Was a procedure done? Was a procedure done?: No CP Differential Dx Differential Diagnosis: A-fib, [place] Differential Diagnosis: CHF, HTN Essential, HTN Accelerated X-Ray, Labs, Meds, VS Vital Signs Date Time Temp Pulse Resp B/P (MAP) Pulse Ox O2 Delivery O2 Flow Rate FiO2 03/21/25 18:38 86 03/21/25 18:30 98.2 54 18 127/69 (88) 98 98.2 Lab Test 03/21/25 20:02 03/21/25 19:02 03/21/25 18:47 Range/Units Troponin I High Sensitivity 20 23 </=54 ng/L White Blood Count 7.5 4.4-10.8 10^3/uL Red Blood Count 5.10 4.5-5.90 10^6/uL Hemoglobin 15.4 13.5-17.5 g/dL Hematocrit 46.1 41.0-53.0 % Mean Corpuscular Volume 90.4 80.0-100.0 fL Mean Corpuscular Hemoglobin 30.2 28.0-32.0 pg Mean Corpuscular Hemoglobin Concent 33.5 32.0-36.0 g/dL Red Cell Distribution Width 12.9 11.8-14.3 % Platelet Count 192 140-450 10^3/uL Mean Platelet Volume 7.5 6.9-10.8 fL Neutrophils (%) (Auto) 59.0 37.0-80.0 % Lymphocytes (%) (Auto) 32.6 10.0-50.0 % Monocytes (%) (Auto) 6.0 0.0-12.0 % Eosinophils (%) (Auto) 2.1 0.0-7.0 % Basophils (%) (Auto) 0.3 0.0-2.0 % Neutrophils # (Auto) 4.4 1.6-8.6 10 ^3/uL Lymphocytes # (Auto) 2.4 0.4-5.4 10 ^3/uL Monocytes # (Auto) 0.5 0-1.3 10 ^3/uL Eosinophils # (Auto) 0.2 0-0.8 10 ^3/uL Basophils # (Auto) 0 0-0.2 10 ^3/uL Nucleated Red Blood Cells 0.1 % Sodium Level 141 136-145 mmol/L Potassium Level 4.1 3.5-5.1 mmol/L Chloride Level 105 98-107 mmol/L Carbon Dioxide Level 28 20-31 mmol/L Anion Gap 8 5-15 Blood Urea Nitrogen 12 9-23 mg/dL Creatinine 1.35 H 0.700-1.30 mg/dL Glomerular Filtration Rate Calc 60 >90 mL/min BUN/Creatinine Ratio 8.9 L 10.0-20.0 Serum Glucose 143 H 74-106 mg/dL Calcium Level 10.3 8.7-10.4 mg/dL Total Bilirubin 0.5 0.2-1.0 mg/dL Aspartate Amino Transferase (AST) 25 13-40 U/L Alanine Aminotransferase (ALT) 49 H 7-40 U/L Alkaline Phosphatase 74 46-116 U/L B-Type Natriuretic Peptide 31.20 0-100 pg/mL Total Protein 7.1 5.7-8.2 g/dL Albumin 4.7 3.2-4.8 g/dL Urine Color Light-yellow Yellow Urine Clarity Clear Clear Urine pH 5.5 5.0-9.0 Urine Specific Mineral 1.037 H 1.001-1.035 Urine Protein Negative Negative Urine Ketones Negative Negative Urine Blood Negative Negative /uL Urine Nitrite Negative Negative Urine Bilirubin Negative Negative Urine Urobilinogen Normal Negative mg/dL Urine Leukocyte Esterase Negative Negative /uL Urine RBC 1 0 - 3 /hpf Urine Microscopic WBC < 1 0-3 /HPF Urine Squamous Epithelial Cells None seen <5 /hpf Urine Bacteria None seen None Seen /hpf Urine Glucose 4+ H Normal mg/dL [place] [id number] Ph: [phone] DIAGNOSTIC IMAGING Diagnostic Imaging Report : [id number] Signed PATIENT: NAYAN FELICIANO SROACCT: [id number] UNIT: [id number] : 1965 LOC: ER ROOM / BED: / AGE / SEX: 59 / M ADM STATUS: REG ER SERVICE [id number] ORDERING PHYSICIAN: DAGMAR NGUYEN PROCEDURE(s): CXR1 - CHEST XRAY 1 VIEW REASON: CP ORDER NUMBER(s): [id number], ACCESSION NUMBER(s): [id number] CHEST RADIOGRAPH Indication: CP Technique: Single frontal view of the chest was obtained Comparison: CHEST PORTABLE on DOS: 07/23/22, CXRP on DOS: 07/23/22 FINDINGS: Lines and Tubes: None Lungs: No focal consolidation. Pleura: No effusion. No pneumothorax. Cardiomediastinal contours: Unremarkable. Midline sternotomy wires surgical clips are noted consistent with prior history of CABG. Bones: No acute osseous abnormality. IMPRESSION: No acute cardiopulmonary disease. ATED BY: NANI KINGSLEY DO DICTATED DATE/TIME: 03/21/251929 SIGNED BY: NANI KINGSLEY DO SIGNED DATE/TIME: 03/21/251929 CC: X-Ray, Labs, Meds, VS Comment Imaging: X-rays and CT scans were reviewed and interpreted by this provider, imaging shows no fractures and no pathological disease. Pending radiology review. Laboratory: Labs reviewed and interpreted by this provider. No significant abnormalities noted. Patient has prior medical visits reviewed. Med reconciliation performed Vital signs reviewed Time of 1ST Reevaluation: 20:00 Reevaluation 1ST: Unchanged Patient Education/Counseling: Diagnosis, Treatment, Need For Follow Up (Follow up with PCP next available appointment) Family Education/Counseling: No Family Present Departure 1 Departure Time of Disposition: 21:47 Impression: Primary Impression: Musculoskeletal chest pain Disposition: HOME / SELF CARE / HOMELESS Condition: Fair Discharged With: Self Critical Care Note Critical Care Time?: No Stability Stability form required: No Heart Score Heart Score: Heart Score Response (Comments) Value History Slightly Suspicious 0 EKG Normal 0 Age 45-64 1 Risk Factors No known risk factors 0 Troponin Normal limit 0 Total 1 I personally scribed for DAGMAR NGUYEN JUVENILE OFFICER ([email or web address]) on 03/21/25 at 20:07. Electronically submitted by Arlin Acevedo ([email or web address]). I personally scribed for ADGMAR NGUYEN JUVENILE OFFICER ([email or web address]) on 03/21/25 at 21:39. Electronically submitted by Arlin Acevedo [email or web address]). DAGMAR NGUYEN JUVENILE OFFICER March 21, 2025 20:07
[2025-03-22 00:09] VITALS: BP 125/66; PULSE 56; RESP 18; TEMP 97.8; O2SAT 96
--- NOTE | 2025-03-22 02:59 | ECG ---
[facility] Test Date: 2025-03-21 Test Time: 18:38:49 Pat Name: KACY FELICIANO Department: ER Room: Gender: M Dimensional Inspector: : 1965 Requested By: DAGMAR NGUYEN Order Number: [id number] Reading MD: Wilbur Gary Measurements Intervals [place] Rate: 86 P: 40 MA: 159 QRS: 37 QRSD: 109 T: -47 QT: 356 QTc: 426 Interpretive Statements Sinus rhythm Multiple ventricular premature complexes Inferior infarct, age indeterminate Probable anterolateral infarct, age indeterm Artifact in lead(s) V2 and baseline wander in lead(s) V2 Electronically Signed On 03-23-2025 12:47:04 PDT by Wilbur Gary Please click the below link to view image of tracing.
== END 2025-03-22 00:09 | disposition home or self-care (01) ==
LOC: ER 18:22
DX: R07.89 Other chest pain (principal); I50.9 Heart failure, unspecified; E78.5 Hyperlipidemia, unspecified; I11.0 Hypertensive heart disease with heart failure; E11.9 Type 2 diabetes mellitus without complications; I25.2 Old myocardial infarction; I48.91 Unspecified atrial fibrillation; F10.90 Alcohol use, unspecified, uncomplicated; Y90.9 Presence of alcohol in blood, level not specified; Z95.1 Presence of aortocoronary bypass graft; Z87.11 Personal history of peptic ulcer disease; Z79.899 Other long term (current) drug therapy; Z79.84 Long term (current) use of oral hypoglycemic drugs; Z79.85 Long-term (current) use of injectable non-insulin antidiabetic drugs; Z98.890 Other specified postprocedural states; Z79.82 Long term (current) use of aspirin; Z79.02 Long term (current) use of antithrombotics/antiplatelets
CPT/HCPCS: 36415; 71045; 80053; 81001; 83880; 84484; 85025; 93005

== ENCOUNTER 2025-09-19 15:14 | Outpatient (CLI) | payer OTHER, MEDICAID | END 2025-09-19 17:00 | disposition home or self-care (01) | LOC: RT 15:14 | PROVIDERS: ATTEND Internal Medicine Pulmonary Disease | DX: J44.9 Chronic obstructive pulmonary disease, unspecified (principal); R06.00 Dyspnea, unspecified; Z79.899 Other long term (current) drug therapy | CPT/HCPCS: 94060; 94618; 94727; 94729 ==